=== PATIENT | female | born 1970 | race Caucasian/White ===

== ENCOUNTER → 2017-01-11 | Outpatient (CLI) | payer OTHER | LOC: FIMAGING 10:06 | PROVIDERS: ATTEND Midwife | DX: D25.2 Subserosal leiomyoma of uterus (principal); D25.1 Intramural leiomyoma of uterus; Z97.5 Presence of (intrauterine) contraceptive device ==

== ENCOUNTER → 2018-10-21 | Outpatient (CLI) | payer OTHER | LOC: BMCIMAGING 13:03 | PROVIDERS: ATTEND Family Medicine | DX: R05 Cough (principal); R06.02 Shortness of breath ==

== ENCOUNTER 2018-10-31 14:41 | Observation (INO) | payer SELFPAY ==
[2018-10-31] MEDS ORDERED: LORazepam 0.5 MG TAB PO PRN (17:49)
[2018-10-31] MEDS ORDERED: HYDROCODONE/APAP 5/325 TAB PO PRN (17:49)
[2018-10-31] MEDS ORDERED: ACETAMINOPHEN 325 MG TAB PO PRN (17:49)
[2018-10-31] MEDS ORDERED: ONDANSETRON 4 MG/2 ML VIAL IVP PRN (17:49)
[2018-10-31] MEDS ORDERED: LORazepam 2 MG/ML INJ IVP PRN (17:49)
[2018-10-31] MEDS ORDERED: ONDANSETRON DISINTEGRATING 4 MG TAB PO PRN (17:49)
[2018-10-31] MEDS ORDERED: oxyCODONE IR 5 MG TAB PO PRN (17:49)
[2018-10-31 19:01] LABS: PLATELET COUNT 195 10^3/uL (150-400)
--- NOTE | 2018-10-31 20:03 | PDGENHP ---
History and Physical - Chief Complaint sob at night - History of Present Illness 48 yo F with PMH that includes hypothyroid and migraines and presents as a direct admit from her PCP's office, Dr. Rincon, with complaints of increasing sob and cough, predominantly at night. Patient notes that this started in September with a sinus infection, she was started on cefuroxime and shortly after taking it developed a rash and severe, wracking cough. She was told this may be an allergic response and to not take any more. She notes that since then she has continued to have bouts of cough, throughout the day, but increasingly worse at night. She was seen by a doctor who started her on albuterol, and this did not help. She was seen again and given an rx for prednisone, which she did not take , but went back to the doctor and was given a rx for flovent which she has been taking without much improvement. She notes that for the last week, and worse for the last several days, she will try to sleep, but wakes up after a couple of hours gasping for air. It is worse if she lays flat and she has been sleeping propped up on several pillows. When she wakes up gasping for air she will get out of bed and has tried her inhaler and even a nebulized breathing treatment without help. She has had some mild chest pain intermittently during this period, but no leg swelling, no leg pain. She has not had fever or chills. She has a non productive cough. Her sinus sxs got better despite not going back on abx after that first rx. She has never had similar issues in the past. She has had some increased stress but not very severe. History Information - Allergies/Home Medication List Allergies/Adverse Reactions: No Known Allergies Allergy (Unverified 12/20/12 05:08) Home Medications: Albuterol Sulfate [Albuterol Sulfate Hfa] 1 - 2 puffs IH Q4-6PRN PRN 10/31/18 [ Last Taken Unknown] Fluticasone Hfa 110 Mcg [Flovent 110 MCG Hfa MDI (*)] 1 puffs IH BID 10/31/18 [ Last Taken 10/31/18] Levothyroxine [Synthroid 125 mcg (*)] 125 mcg PO SUTUWETHFRSA 10/31/18 [Last Taken 10/31/18] Levothyroxine [Synthroid 125 mcg (*)] 250 mcg PO MO 10/31/18 [Last Taken ] I have personally reviewed and updated: family history, medical history, social history, surgical history - Past Medical History migraines Additional medical history: hypothyroid. low HDL. uterine fibroids - Surgical History Reports: hysterectomy - Family History Positive for: cancer (mother of lung cancer at 73) - Social History Smoking Status: Never smoked Alcohol Use: Rarely Drug Use: None Additional social history: , lives with and 5 year old child, they recently moved to the house they are in now Review of Systems Review of Systems: ROS: 10pt was reviewed & negative except for what was stated in HPI & below Physical Exam Physical Exam: Temp Pulse Resp BP Pulse Ox 37.2 C 71 16 112/75 95 10/31/18 19:55 10/31/18 19:55 10/31/18 19:55 10/31/18 19:55 10/31/18 19:55 Eyes: PERRL, anicteric sclera Ears, Nose, Mouth, Throat: moist mucous membranes, hearing normal Cardiovascular: regular rate and rhythym, no murmur, rub, or gallop, No edema Respiratory: no respiratory distress, no rales or rhonchi, clear to auscultation Gastrointestinal: normoactive bowel sounds, soft, non-tender abdomen Genitourinary: no bladder tenderness Skin: warm, normal color Musculoskeletal: full muscle strength Neurologic: AAOx3 Psychiatric: interacting appropriately, not anxious, not encephalopathic Lab Data & Imaging Review 10/31/18 18:50 10/31/18 18:50 WBC 5.70 10^3/uL (3.80-9.50) 10/31/18 18:50 RBC 4.69 10^6/uL (4.18-5.33) 10/31/18 18:50 Hgb 14.6 g/dL (12.6-16.3) 10/31/18 18:50 Hct 43.3 % (38.0-47.0) 10/31/18 18:50 MCV 92.3 fL (81.5-99.8) 10/31/18 18:50 MCH 31.1 pg (27.9-34.1) 10/31/18 18:50 MCHC 33.7 g/dL (32.4-36.7) 10/31/18 18:50 RDW 12.3 % (11.5-15.2) 10/31/18 18:50 Plt Count 195 10^3/uL (150-400) 10/31/18 18:50 MPV 10.3 fL (8.7-11.7) 10/31/18 18:50 Neut % (Auto) 59.8 % (39.3-74.2) 10/31/18 18:50 Lymph % (Auto) 29.6 % (15.0-45.0) 10/31/18 18:50 Sevier % (Auto) 7.9 % (4.5-13.0) 10/31/18 18:50 Eos % (Auto) 2.1 % (0.6-7.6) 10/31/18 18:50 Baso % (Auto) 0.4 % (0.3-1.7) 10/31/18 18:50 Nucleat RBC Rel Count 0.0 % (0.0-0.2) 10/31/18 18:50 Absolute Neuts (auto) 3.41 10^3/uL (1.70-6.50) 10/31/18 18:50 Absolute Lymphs (auto) 1.69 10^3/uL (1.00-3.00) 10/31/18 18:50 Absolute Monos (auto) 0.45 10^3/uL (0.30-0.80) 10/31/18 18:50 Absolute Eos (auto) 0.12 10^3/uL (0.03-0.40) 10/31/18 18:50 Absolute Basos (auto) 0.02 10^3/uL (0.02-0.10) 10/31/18 18:50 Absolute Nucleated RBC 0.00 10^3/uL (0-0.01) 10/31/18 18:50 Immature Gran % 0.2 % (0.0-1.1) 10/31/18 18:50 Immature Gran # 0.01 10^3/uL (0.00-0.10) 10/31/18 18:50 Sodium 140 mEq/L (135-145) 10/31/18 18:50 Potassium 3.9 mEq/L (3.5-5.2) 10/31/18 18:50 Chloride 103 mEq/L (97-110) 10/31/18 18:50 Carbon Dioxide 26 mEq/l (22-31) 10/31/18 18:50 Anion Gap 11 mEq/L (6-14) 10/31/18 18:50 BUN 11 mg/dL (7-23) 10/31/18 18:50 Creatinine 0.6 mg/dL (0.6-1.0) 10/31/18 18:50 Estimated GFR > 60 10/31/18 18:50 Glucose 97 mg/dL (70-100) 10/31/18 18:50 Calcium 9.7 mg/dL (8.5-10.4) 10/31/18 18:50 Total Bilirubin 0.3 mg/dL (0.1-1.4) 10/31/18 18:50 AST 17 IU/L (14-46) 10/31/18 18:50 ALT 29 IU/L (9-52) 10/31/18 18:50 Alkaline Phosphatase 53 IU/L (38-126) 10/31/18 18:50 NT-Pro-B Natriuret Pep 34 pg/mL (0-125) 10/31/18 18:50 Total Protein 7.8 g/dL (6.3-8.2) 10/31/18 18:50 Albumin 4.9 g/dL (3.5-5.0) 10/31/18 18:50 TSH 0.552 uIU/mL (0.465-4.680) 10/31/18 18:50 Visualized and Interpreted Chest x-ray results: Yes Chest X-Ray results: no infiltrate Visualized and Interpreted EKG results: Yes EKG Interpretation: Positive for: normal sinsus rhythm Assessment & Plan Assessment: 48 yo F w/ limited PMH presenting with nocturnal sob and cough # sob/cough: with sxs very severe at night to the point where she is not sleeping and has nearly come to the ER on several occasions per her report. Lungs sound clear, no prior hx of asthma and not really improving with inhalers. Does report orthopnea and PND concerning for CHF, but no e/o CHF on exam or CXR. Plan to monitor overnight on pulse oximetry, will get echo in am to r/o early CHF. If does have episodes of desaturation at night would likely benefit from formal sleep study as OP. Denies hx of GERD or waking with bad taste in mouth so doubt nocturnal aspiration and no e/o aspiration on cxr. Does not report severe anxiety but could be atypical presentation of panic attack. Will get PFT in am if possible. # hypothyroid: TSH wnl, continue home meds # migraine: no acute issues with that # observation status # patient new to my care. Old records reviewed and summarized as above. Care plan reviewed with Dr. Rincon including plans for overnight obs.
[2018-10-31] MEDS ORDERED: ALBUTEROL 3 ML DEYVIAL IH PRN (20:12)
[2018-10-31] MEDS ORDERED: LEVOTHYROXINE 125 MCG TAB PO SCH (20:15)
[2018-10-31] MEDS: FLUTICASONE HFA 110 MCG MDI IH SCH (21:09)
[2018-11-01] MEDS ORDERED: LEVOTHYROXINE 125 MCG TAB PO SCH (06:00)
[2018-11-01] MEDS: FLUTICASONE HFA 110 MCG MDI IH SCH (08:26)
--- NOTE | 2018-11-01 11:41 | HOSPPROG ---
Hospitalist Progress Note Assessment/Plan: 48 yo F w dyspnea, cough dyspnea: better overnight for unclear reasons ? steroid inhaler no secondary evidence of PE will have her walk stairs, eval if truly better not hypoxic cough: post viral vs post nasal drip not clear that this is the cause of dyspnea dispo: pending echo Subjective: cxr w no acute cardiopulmonary disease (interp by me). ekg normal ( interp by me) Objective: Vital Signs Temp Pulse Resp BP Pulse Ox 37.2 C 59 L 13 110/70 97 11/01/18 11:07 11/01/18 11:07 11/01/18 11:07 11/01/18 11:07 11/01/18 11:07 Laboratory Results 10/31/18 18:50 10/31/18 18:50 10/31/18 11/01/18 11/02/18 05:59 05:59 05:59 Intake Total 250 Balance 250 - Physical Exam Constitutional: no apparent distress, appears nourished Eyes: anicteric sclera Ears, Nose, Mouth, Throat: moist mucous membranes, hearing normal Cardiovascular: regular rate and rhythym, no murmur, rub, or gallop, No systolic murmur Respiratory: no respiratory distress, no rales or rhonchi Gastrointestinal: normoactive bowel sounds, soft, non-tender abdomen Genitourinary: no bladder fullness, No victor in urethra Skin: warm, normal color Musculoskeletal: full muscle strength Neurologic: AAOx3 ICD10 Worksheet Patient Problems: Problems Problem Status Onset SOB (shortness of breath) Acute
--- NOTE | 2018-11-01 11:45 | ASMTCMCOM ---
CM Note CM Note Notes: Reviwed chart, pt admitted for sob. Lives at home with and is self employed. No therapies ordered, anticipate she will dc home with support of when medically stable. CM available should her needs change. DC Plan: Independent Date Signed: 11/01/2018 11:44 AM Electronically Signed By:Tana Garcia RN
[2018-11-01 15:29] VITALS: BP 102/68
--- NOTE | 2018-11-01 16:04 | ECHO ---
[email or web address] [address] Main: [phone] Echocardiography Examination Transthoracic Name: ALOK SCRUGGS MR#: [id number] Study Date: 11/01/2018 Study Time: 09:49 AM Date of : 1970 Age: 48 year(s) Height: 167.6 cm (66 in.) Weight: 54.43 kg (120 lb.) BSA: 1.61 m2 Gender: Female Examination: Echo Contrast: Image Quality: Adequate Rhythm: Heart Rate: BP: / Indication: PND, nocturnal dyspnea Procedure Staff Referring Physician: Geropsychologist: Janet Gant [facility] Reading Physician: Irineo Carballo MD Requesting Provider: Ordering Physician: Sarah Winters Indication: PND, nocturnal dyspnea No blood pressure available Measurements Chambers AV/MV Label Value Normal Value Label Value Normal Value LVOTd 2 cm (1.8cm - 2cm) AV PGmax 5 mmHg LVOT VTI 18.5 cm (18cm - 22cm) AV PGmean 3 mmHg LVDd, 2D 4.9 cm (3.9cm - 5.3cm) AV Vmax 1.1 m/s LVDs, 2D 3.3 cm (2.1cm - 4cm) SINDI (VTI) 2.5 cm2 IVSd, 2D 0.8 cm (0.6cm - 1.1cm) MV E Vmax 0.65 m/s LVPWd, 2D 0.8 cm MV A Vmax 0.5 m/s LVEF, BP 62 % (55% - 70%) MV E/A 1.3 LVEF, 2D 62 % (54% - 74%) MV E/E' lateral 5.6 LVOT PGmean 2 mmHg MV E/E' septal 6.9 (0.5 - 1.7) LVOT Vmean 0.65 m/s MV DT 162 ms RVDd, 2D 2.8 cm (1.9cm - 3.8cm) MV E' septal 0.09 m/s LA Volume, BP 43 ml (22ml - 52ml) MV PHT 0.05 s LADs, 2D 3.4 cm (2.7cm - 3.8cm) MVA PHT 4.2 cm2 LAESV index, BP 26.7 ml/m2 MV E' lateral 0.12 m/s RA Area 12.2 cm2 MV E/E' mean 6.19 Additional Vessels MV PHT 52 ms Label Value Normal Value MV E' mean 0.1 m/s Patient: ALOK SCRUGGS Study Date: 11/01/2018 Page 1 of 2 09:49 AM AoAsc 2.8 cm TV/PV AoRoot, 2D 2.8 cm (1.4cm - 2.6cm) Label Value Normal Value IVC 1.3 cm (1.2cm - 2.3cm) RA Pressure 5 mmHg PV PGmax 2 mmHg PV Vmax, Caliper 0.77 m/s (0.6m/s - 0.9m/s) Findings 1. Left ventricle is normal in size and function. The ejection fraction is 60-65%.2. The aortic valve is trileaflet. There is no aortic stenosis or insufficiency.3. There is borderline mitral valve prolapse with mild mitral regurgitation.4. The pulmonary artery pressure could not be adequately estimated.5. No old studies for comparison.. Left Ventricle: Left ventricle is normal in size. Normal global systolic left ventricular function. The ejection fraction, measured by Simpsons method, is 62 %. EF range is estimated at 60 % - 65 %. Left ventricle wall thickness is normal. There are no regional wall motion abnormalities. Left ventricular diastolic function parameters are normal. No LV hypertrophy. Right Ventricle: Normal size right ventricle. Right ventricular systolic function is normal. Left Atrium: The left atrium is normal in size. Right Atrium: The right atrium is normal in size. Mitral Valve: Mild mitral regurgitation. No mitral valve stenosis. Mild mitral valve prolapse. Aortic Valve: Aortic leaflets are structurally normal. No significant aortic valve regurgitation. There is no aortic stenosis. Tricuspid Valve: Tricuspid valve leaflets are structurally normal. Trivial tricuspid regurgitation. No tricuspid valve stenosis. Pulmonary artery pressure cannot be assessed due to inadequate TR signal. Pulmonic Valve: Pulmonic leaflets are structurally normal. Mild pulmonic valve regurgitation is present. Aorta: The aortic root size in 2D measures 2.8 cm. The ascending aorta measures 2.8 cm. Aorta Measurements AoRoot, 2D is 2.8 cm. IVC: The inferior vena cava is normal in size. Pericardium: No pericardial effusion. Exam Details Procedure Ordered: Echo Procedure Status: Routine study Image Quality: Adequate Facility Location: Bedside (No Signature Object) Patient: ALOK SCRUGGS Study Date: 11/01/2018 Page 2 of 2 09:49 AM [id number]
--- NOTE | 2018-11-01 18:33 | CPEKG ---
Test Reason : OPEN Blood Pressure : / mmHG Vent. Rate : 056 BPM Atrial Rate : 055 BPM P-R Int : 169 ms QRS Dur : 092 ms QT Int : 427 ms P-R-T Axes : 076 056 031 degrees QTc Int : 413 ms Sinus rhythm Confirmed by Luna Hewitt ([id number]) on 11/01/2018 6:32:50 PM Referred By: Sarah Winters Confirmed By:Luna Hewitt
--- NOTE | 2018-11-01 19:54 | GDS ---
[f rep st] DISCHARGE SUMMARY DISCHARGE DIAGNOSES: 1. Shortness of breath. 2. Recent upper respiratory infection/sinusitis. HISTORY: Please see admission history and physical by Dr. Sarah Winters. The patient presented to her primary care physician's office with orthopnea and nocturnal shortness of breath. She was actua lly improved after a night in the hospital. She had been started on a recent steroid inhaler, and po ssibly attributed it to the steroid inhaler "kicking in." She had a normal chest x-ray, nonischemic EKG, an echocardiogram showing mild mitral regurgitation that is not felt to be causative, although erna adler did discuss this. Pulmonary embolism was considered. She was not tachycardic, did not have pleuri tic symptoms. Was able to ambulate up and down the stairs without significant shortness of breath. She is discharged home on an unchanged medication regimen. /[id number]/MODL
[2018-11-05] MEDS ORDERED: LEVOTHYROXINE 125 MCG TAB PO SCH (20:11)
== END 2018-11-01 16:49 | disposition home or self-care (01) ==
LOC: F3E 16:57
PROVIDERS: ADMIT Internal Medicine; ATTEND Internal Medicine
DX: R06.02 Shortness of breath (principal); J06.9 Acute upper respiratory infection, unspecified; J32.9 Chronic sinusitis, unspecified; E03.9 Hypothyroidism, unspecified; G43.909 Migraine, unspecified, not intractable, without status migrainosus
CPT/HCPCS: G0378; G0379